=== PATIENT | male | born 1990 | race African-American/Black ===

== ENCOUNTER 2022-09-19 19:53 | Emergency (ER) | payer BC ==
[~2022-09-19] VITALS: Ht 180.3 cm; Wt 82.0 kg
[2022-09-19 20:19] VITALS: BP 142/78
[2022-09-19] MEDS ORDERED: ALBU6.7H3 INH (22:39)
[2022-09-19] MEDS ORDERED: BENZ200C52 MT (22:39)
== END 2022-09-19 22:40 | disposition home or self-care (01) ==
LOC: ER 19:53
DX: R05.9 Cough, unspecified (principal); J40 Bronchitis, not specified as acute or chronic; Z20.822 Contact with and (suspected) exposure to COVID-19
CPT/HCPCS: 71045; 87426; 87804; 99284; C9803